=== PATIENT | female | born 1945 | race Two or more races ===

== ENCOUNTER 2018-09-03 13:08 | Outpatient (CLI) | payer OTHER | END 2018-09-03 13:23 | disposition home or self-care (01) | LOC: RAD 501 13:08 | DX: M25.561 Pain in right knee (principal) ==

== ENCOUNTER 2021-06-12 14:23 | Outpatient (CLI) | payer OTHER | END 2021-06-12 14:35 | disposition home or self-care (01) | LOC: RAD 14:23 | PROVIDERS: ATTEND Physical Medicine & Rehabilitation | DX: M51.37 Other intervertebral disc degeneration, lumbosacral region (principal); M54.2 Cervicalgia; M54.16 Radiculopathy, lumbar region; M85.88 Other specified disorders of bone density and structure, other site ==

== ENCOUNTER 2021-06-18 13:03 | Outpatient (CLI) | payer OTHER | END 2021-06-18 13:11 | disposition home or self-care (01) | LOC: MRI 13:03 | PROVIDERS: ATTEND Physical Medicine & Rehabilitation | DX: S83.281A Other tear of lateral meniscus, current injury, right knee, initial encounter (principal); M17.11 Unilateral primary osteoarthritis, right knee; M25.561 Pain in right knee; M25.461 Effusion, right knee | CPT/HCPCS: 73721 ==

== ENCOUNTER 2021-11-13 14:14 | Outpatient (CLI) | payer OTHER | END 2021-11-13 14:24 | disposition home or self-care (01) | LOC: RAD 14:14 | PROVIDERS: ATTEND Specialist | DX: S92.912A Unspecified fracture of left toe(s), initial encounter for closed fracture (principal) ==

== ENCOUNTER → 2021-12-04 | Outpatient (CLI) | payer OTHER | END | disposition home or self-care (01) | LOC: RAD 14:09 | PROVIDERS: ATTEND Physical Medicine & Rehabilitation | DX: M79.672 Pain in left foot (principal) ==

== ENCOUNTER 2022-01-09 10:13 | Outpatient (CLI) | payer OTHER | END 2022-01-09 10:15 | disposition home or self-care (01) | LOC: MRI 10:13 | PROVIDERS: ATTEND Physical Medicine & Rehabilitation | DX: M54.12 Radiculopathy, cervical region (principal) | CPT/HCPCS: 72141 ==

== ENCOUNTER 2025-05-20 10:27 | Outpatient (CLI) | payer OTHER | END 2025-05-20 10:31 | disposition home or self-care (01) | LOC: RAD 10:27 | PROVIDERS: ATTEND Physical Medicine & Rehabilitation | DX: M25.561 Pain in right knee (principal); M25.562 Pain in left knee ==